=== PATIENT | female | born 2005 | race Caucasian/White ===

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

== ENCOUNTER → 2024-01-04 | Outpatient (REF) | payer OTHER | LOC: M LAB REF 12:49 | PROVIDERS: ATTEND Nurse Practitioner Family | DX: M54.50 Low back pain, unspecified (principal); R50.9 Fever, unspecified ==

== ENCOUNTER → 2025-01-01 | Outpatient (CLI) | payer BC, OTHER | LOC: M RAD 16:27 | PROVIDERS: ATTEND Registered Nurse | DX: M79.641 Pain in right hand (principal); M54.50 Low back pain, unspecified ==